=== PATIENT | male | born 1955 | race Two or more races ===

== ENCOUNTER 2022-04-17 10:24 | Emergency (ER) | payer OTHER ==
[~2022-04-17] VITALS: Ht 185.4 cm; Wt 120.2 kg
[2022-04-17] MEDS ORDERED: CRESTOR40 MG PO (10:52)
[2022-04-17] MEDS ORDERED: CARVEDILOL ER40 MG PO (10:52)
[2022-04-17] MEDS ORDERED: VASOTEC2.5 MG PO (10:52)
[2022-04-17] MEDS ORDERED: MEDROLPACK PO (11:05)
[2022-04-17] MEDS ORDERED: NORFLEX100MG PO (11:05)
== END 2022-04-17 11:43 | disposition home or self-care (01) ==
LOC: ER 10:24
DX: M54.50 Low back pain, unspecified (principal)